=== PATIENT | female | born 1965 | race Caucasian/White ===

== ENCOUNTER 2018-04-06 15:08 | Emergency (ER) | payer OTHER ==
[2018-04-06] MEDS ORDERED: BUFFERED LIDOCAINE 10 ML SYRINGE ONE (15:18)
--- NOTE | 2018-04-06 15:24 | ED Physician Documentation ---
PD HPI UPPER EXT INJURY - Stated complaint Stated Complaint: RT PINKY FING INJ - Chief complaint Chief Complaint: Trauma Ext - History obtained from History obtained from: Patient, Family - History of Present Illness Location: Right (Tripped and fell while climbing over a retaining wall and injured her right fifth finger with severe pain. No other injuries.) Review of Systems Constitutional: denies: Fever, Chills Cardiac: reports: Reviewed and negative Respiratory: reports: Reviewed and negative PD PAST MEDICAL HISTORY - Past Medical History Cardiovascular: None Respiratory: None Endocrine/Autoimmune: None GI: None PACKAGING DESIGNER: Breast cancer : None HEENT: None Psych: None Musculoskeletal: None Derm: None - Past Surgical History Past Surgical History: Yes General: Appendectomy /PACKAGING DESIGNER: Mastectomy, Breast implants - Present Medications Home Medications: Ambulatory Orders Medication Instructions Recorded Confirmed Cyclobenzaprine [Flexeril] 10 mg PO DAILY PRN 04/18/17 04/06/18 HYDROcodone/ACET 10/325 [[place] 10 1 tab PO Q6HR 04/18/17 04/06/18 mg/325 mg] buPROPion [Wellbutrin Xl] 150 mg PO DAILY 04/18/17 04/06/18 Hydrocodone/Acetaminophen 1 - 2 each PO Q6H PRN #10 tablet 04/06/18 [Hydrocodon-Acetaminophen 5-325] Linaclotide [Linzess] 145 mcg PO DAILY 04/06/18 04/06/18 - Allergies Allergies/Adverse Reactions: Allergies Allergy/AdvReac Type Severity Reaction Status Date / Time No Known Drug Allergies Allergy Verified 04/06/18 15:19 - Social History Does the pt smoke?: No Smoking Status: Never smoker Does the pt drink ETOH?: Yes Does the pt have substance abuse?: No - Immunizations Immunizations: TDAP current <10years - POLST Patient has POLST: No PD ED PE NORMAL - Vitals Vital signs reviewed: Yes - General General: Alert and oriented X 3, Other (Anxious crying and in pain) - Neck Neck: Supple, no meningeal sign, No bony TTP - Extremities Extremities: Other (There is no obvious deformity about the proximal phalanx of the right fifth finger) - Neuro Neuro: Alert and oriented X 3, Normal speech Results - Vitals Vitals: Vital Signs - 24 hr 04/06/18 15:10 Temperature 36.3 C L Heart Rate 105 H Respiratory 16 Rate Blood Pressure 153/98 H O2 Saturation 98 Oxygen O2 Source Room air - Rads (name of study) R 5th finger XR Radiology: EMP read contemporaneously (Posterior medial dislocation of the fifth PIP with potentially a small impaction or avulsion at the anterior aspect of the base of the fifth middle phalanx. There is an old flake fracture dorsal to the fifth DIP joint.) Procedures - Splint (location) R 5th finger Splint applied by: Physician Type of splint: Metal foam finger splint Other: Patient tolerated well, No complications, Neurovascular intact - Reduction Body part reduced: Right, Finger Fracture or dislocation: Dislocation Anesthesia: Digital block Reduction aftercare: NV intact, Splint applied - Regional nerve block Nerve block site: Digital - note digit(s) (right 5th) Nerve block anesthesia: Lidocaine 1% (with bicarb) Nerve block aftercare: Excellent anesthesia PD MEDICAL DECISION MAKING - ED course ED course: 53-year-old woman presents with dislocated finger. She has overwhelming anxiety even after pain was treated on arrival with a digital block and was also administered Ativan IM with good effect and the finger was reduced and splinted. Departure - Departure Disposition: 01 Home, Self Care Clinical Impression: Dislocation, finger closed Condition: Good Record reviewed to determine appropriate education?: Yes Instructions: ED Dislocation Finger Redu Prescriptions: Hydrocodone/Acetaminophen [Hydrocodon-Acetaminophen 5-325] 1 - 2 each PO Q6H PRN #10 tablet PRN Reason: pain Comments: Recheck with your doctor in 2 weeks, return if worse or if new symptoms develop develop. Your blood pressure was elevated today on check into the emergency department. This does not mean that you have hypertension, it is a common phenomenon to come to the emergency department and have elevated blood pressure. I recommend that you see your primary care physician within the week to have it rechecked when you are feeling better. Discharge Date/Time: 04/06/18 15:51
[2018-04-06 15:27] VITALS: BP 153/98
[2018-04-06] MEDS: LORazepam 2 MG/ML VIAL IM STA (15:35)
--- NOTE | 2018-04-06 15:52 | XRAY Report ---
Reason: finger inj Procedure Date: 04/06/2018 Accession Number: [id number] / [id number] Procedure: XR - Finger(s) RT CPT Code: FULL RESULT: EXAM: RIGHT FIFTH FINGER DIGIT RADIOGRAPHY EXAM DATE: 04/06/2018 03:35 PM. CLINICAL HISTORY: Fall. Fifth finger pain. COMPARISON: None. TECHNIQUE: 3 views. FINDINGS: Bones: 2 x 3 mm impaction injury suspected palmar aspect base fifth middle phalanx. 1 x 2 mm flake fracture dorsal to the head fifth middle phalanx without adjacent edema. Joints: Posteromedial dislocation base fifth middle phalanx relative to the fifth proximal phalangeal head. Soft Tissues: Moderate edema at the fifth PIP joint. IMPRESSION: 1. Posteromedial dislocation fifth middle phalanx upon the fifth proximal phalanx. 2. Suspect small impaction injury or avulsion fracture anterior aspect base fifth middle phalanx. 3. 1 x 2 mm flake fracture dorsal to the fifth DIP joint, most likely old. [facility]
== END 2018-04-06 15:51 | disposition home or self-care (01) ==
LOC: ED 15:08
DX: S63.286A Dislocation of proximal interphalangeal joint of right little finger, initial encounter (principal); W01.0XXA Fall on same level from slipping, tripping and stumbling without subsequent striking against object, initial encounter; Y93.31 Activity, mountain climbing, rock climbing and wall climbing; F41.9 Anxiety disorder, unspecified; R03.0 Elevated blood-pressure reading, without diagnosis of hypertension
CPT/HCPCS: 26770; 29130; 73140; 96372; 99283

== ENCOUNTER 2018-06-30 14:41 | Outpatient (CLI) | payer OTHER ==
--- NOTE | 2018-07-01 14:34 | MRI Report ---
Reason: DISLOCATION OF PROXIMAL INTERPHALANGEAL JOINT OF L Procedure Date: 06/30/2018 Accession Number: [id number] / [id number] Procedure: MRI - Finger(s) RT W/O CPT Code: 35128 FULL RESULT: EXAM: RIGHT HAND FIFTH DIGIT MR WITHOUT CONTRAST EXAM DATE: 06/30/2018 04:18 PM. CLINICAL HISTORY: Previous fifth digit dislocation injury on 04/06/2018. COMPARISON: Finger(s) right 05/03/2018 2:08 PM. FInger(s) right 04/06/2018 3:24 PM. TECHNIQUE: Multiplanar, multisequence T1-weighted and fluid-sensitive sequences of the finger without contrast. Other: None. FINDINGS: Bones: Small subcortical cyst at the radial aspect of the fifth metacarpal head. No definite acute fracture or bone contusion. Cartilage: The articular cartilage is unremarkable. Ligaments: Sprain of the fifth PIP joint ulnar and radial collateral ligaments. The fifth DIP and metacarpophalangeal joint radial and ulnar collateral ligaments are intact. Tendons: The flexor and extensor tendons are unremarkable. The visualized pulleys are intact. Musculature: No edema or fatty atrophy. Other: No joint effusions or capsular rupture. Mild subcutaneous edema at the fifth PIP joint. IMPRESSION: 1. Sprain of the fifth PIP joint ulnar and radial collateral ligaments. Mild subcutaneous edema at the fifth PIP joint. [facility] MUSCULOSKELETAL RADIOLOGY SECTION
== END 2018-06-30 14:42 | disposition home or self-care (01) ==
LOC: DI 14:41
PROVIDERS: ATTEND Orthopaedic Surgery Sports Medicine
DX: S63.286A Dislocation of proximal interphalangeal joint of right little finger, initial encounter (principal); S53.31XA Traumatic rupture of right ulnar collateral ligament, initial encounter; S53.21XA Traumatic rupture of right radial collateral ligament, initial encounter